=== PATIENT | female | born 1990 | race Caucasian/White ===

== ENCOUNTER 2018-01-03 09:20 | Emergency (ER) | payer MEDICAID, OTHER ==
[~2018-01-03] VITALS: Ht 157.5 cm; Wt 70.0 kg
[~2018-01-03 09:20] MED LIST: BENZ-16 PO; LANS30CA37 PO; NEOM10SO7 OT; NITR100C6 PO; ZOF4T PO
[2018-01-03 09:34] VITALS: BP 115/59
[2018-01-03] MEDS ORDERED: pyridoxine 50mg tablet PO SCH (10:00)
[2018-01-03] MEDS ORDERED: sulfamethoxazole/trimethoprim DS (800/160mg) tablet PO ONE (10:00)
[2018-01-03] MEDS ORDERED: SULF1TAB49 PO (10:01)
[2018-01-03] MEDS ORDERED: PHEN-716 PO (10:01)
[2018-01-03 10:12] LABS: CLARITY,URINE CLEAR (Clear); COLOR,URINE YELLOW (Yellow); GLUCOSE, URINE NEGATIVE (Neg); KETONES,URINE NEGATIVE (Neg); LEUKOCYTE ESTERASE ,URINE SMALL (Neg); NITRITES, URINE NEGATIVE (Neg); OCCULT BLOOD,URINE MODERATE (Neg); PROTEIN,URINE NEGATIVE (Neg); UROBILINOGEN,URINE 0.2 E.U/dL (0.2-1.0)
[2018-01-03 10:17] LABS: URINE HCG NEGATIVE (NEG)
[2018-01-03 10:20] LABS: UA COLLECTION TYPE CLN CATCH MIDSTREAM
[2018-01-03 10:22] LABS: SQUAMOUS EPITHELIAL CELL,UR MODERATE /LPF (FEW)
[2018-01-03 10:23] LABS: BACTERIA,URINE 1+ /HPF (Neg)
== END 2018-01-03 10:32 | disposition home or self-care (01) ==
LOC: ER 09:20
DX: N39.0 Urinary tract infection, site not specified (principal); Z79.899 Other long term (current) drug therapy
CPT/HCPCS: 81001; 81025; 87077; 87088; 87186; 99284

== ENCOUNTER 2020-07-01 04:45 | Emergency (ER) | payer MEDICAID ==
[~2020-07-01] VITALS: Ht 157.5 cm; Wt 56.8 kg
[~2020-07-01 04:45] MED LIST changes: +PHEN-716 PO
[2020-07-01 04:47] VITALS: BP 103/64
[2020-07-01 05:19] LABS: URINE HCG NEGATIVE (NEG)
[2020-07-01] MEDS ORDERED: phenazopyridine 100mg tablet PO ONE (06:10)
[2020-07-01] MEDS ORDERED: nitrofuran/nitrofuran macrocrysal 100 MG capsule PO ONE ×2 (06:10→06:30)
[2020-07-01] MEDS ORDERED: PHEN-786 PO (06:13)
[2020-07-01] MEDS ORDERED: NITR100C6 PO (06:13)
[2020-07-01 06:15] LABS: CLARITY,URINE SLIGHTLY CLOUDY (Clear); COLOR,URINE STRAW (Yellow); UA COLLECTION TYPE CLN CATCH MIDSTREAM
[2020-07-01 06:16] LABS: GLUCOSE, URINE NEGATIVE (Neg); KETONES,URINE NEGATIVE (Neg); LEUKOCYTE ESTERASE ,URINE MODERATE (Neg); NITRITES, URINE NEGATIVE (Neg); OCCULT BLOOD,URINE LARGE (Neg); PROTEIN,URINE TRACE mg/dl (Neg); UROBILINOGEN,URINE 0.2 E.U/dL (0.2-1.0)
[2020-07-01 06:28] LABS: BACTERIA,URINE 2+ /HPF (Neg); RBC,URINE TNTC /HPF (0-2); SQUAMOUS EPITHELIAL CELL,UR NONE SEEN /LPF (FEW); WBC,URINE 30-50 /HPF (0-4)
[2020-07-01] MEDS ORDERED: phenazopyridine 100mg tablet ONE (06:30)
== END 2020-07-01 06:43 | disposition home or self-care (01) ==
LOC: ER 04:46
DX: N39.0 Urinary tract infection, site not specified (principal); Z90.89 Acquired absence of other organs; Z72.89 Other problems related to lifestyle; Z88.0 Allergy status to penicillin; Z79.899 Other long term (current) drug therapy
CPT/HCPCS: 81001; 81025; 87077; 87088; 87186; 99283

== ENCOUNTER 2025-03-07 13:17 | Outpatient (CLI) | payer MEDICAID ==
[~2025-03-07 13:17] MED LIST changes: +PHEN-786 PO
--- NOTE | 2025-03-07 14:43 | RADIOLOGY REPORT ---
CLINICAL INDICATION: LOW BACK PAIN TECHNIQUE: 2 radiographic views of the lumbar spine were obtained. Comparison: None FINDINGS/IMPRESSION: 5 [id number] lumbar-type vertebrae. Normal alignment of the lumbar spine. Vertebral body height s are maintained. No evidence of acute traumatic fractures or spondylolisthesis. Small to moderate am ount of fecal material within the visualized colon. Ring shaped density overlying the midline L5 on t he frontal view which is not definitely visualized on the lateral view and may be external to the pat ient.
--- NOTE | 2025-03-07 15:03 | RADIOLOGY REPORT ---
INDICATION: pain TECHNIQUE: Multiple real-time grayscale transabdominal and TV sonographic images along with color an d duplex Doppler of the uterus and ovaries were obtained. COMPARISON: None FINDINGS: The uterus measures 9 x 4 x 5 cm. The endometrial stripe measures 0.3 cm. The right ovary measures 3 x 3 x 3 cm. The left ovary measures 3 x 3 x 2 cm. 2.3 cystic mass in vagina. Subsequent color and duplex Doppler interrogation of the ovaries demonstrated symmetric vascular flow to both ovaries, though this does not exclude the possibility of torsion due to the dual blood suppl y. IMPRESSION: 2.3 cystic mass in vagina. MRI suggested.
== END 2025-03-07 23:59 | disposition home or self-care (01) ==
LOC: RAD 13:17
PROVIDERS: ATTEND Student in an Organized Health Care Education/Training Program
DX: N76.89 Other specified inflammation of vagina and vulva (principal); M54.50 Low back pain, unspecified; R10.2 Pelvic and perineal pain
CPT/HCPCS: 72100; 76830; 76856; 93976